=== PATIENT | female | born 1990 | race African-American/Black ===

== ENCOUNTER 2020-05-02 10:08 | Observation (INO) | payer SELFPAY ==
[2020-05-02] MEDS ORDERED: IV RINGERS,LACTATED 1000ML 1,000 ML IV SCH (10:30)
[2020-05-02 11:23] LABS: BILIRUBIN,URINE NEGATIVE (NEG); CLARITY,URINE CLEAR; COLOR,URINE YELLOW; NITRITE,URINE NEGATIVE (NEG); PH,URINE 6.5 (<5.0-8.0); PROTEIN,URINE NEGATIVE (NEG-TRACE)
[2020-05-02 11:39] LABS: RBC,URINE OCC /HPF (0-2)
[2020-05-02 11:40] LABS: BACTERIA,URINE FEW /HPF (0-FEW); WBC,URINE OCC /HPF (0-4)
--- NOTE | 2020-05-02 13:13 | RAD ---
Limited OB ultrasound greater than 14 weeks 05/02/2020 Clinical History: Second trimester . Abdominal trauma. No care. Technique: A real-time ultrasound examination of the gravid uterus was performed. Multiple images were obtained. Findings: There is a single living IUP. The fetus is in abreech position. cardiac and somatic activity is seen. The heart rate is 145 beats per minutes. The placenta is posterior. No abnormality is seen. No abnormality is seen. The amniotic fluid volume is within normal limits. Neither maternal ovary is visualized. No free fluid is seen. The following measurements were obtained: BPD 4.82cm 20 weeks 4 days HC 18.56 cm 20weeks 6 days AC 17.2 cm 22weeks 1 days FL 4.03 cm 23 weeks 0 days The estimated gestational age by ultrasound is 21 weeks 5 days plus or minus a standard deviation of 10 days. The estimated date of delivery by ultrasound is 09/07/2020. Detailed evaluation of anatomy was not performed. Impression: Single living IUP with an estimated gestational age by ultrasound of 21 weeks5 days +/- a standard deviation of 10 days. The estimated date of delivery by ultrasound is09/07/2020. Electronically signed by: Sourav Raman MD (05/02/2020 1:10 PM) [id number]
== END 2020-05-02 13:00 | disposition home or self-care (01) ==
LOC: 3 SO LND 10:08
PROVIDERS: ADMIT Obstetrics & Gynecology; ATTEND Obstetrics & Gynecology
DX: O26.892 Other specified pregnancy related conditions, second trimester (principal); R10.30 Lower abdominal pain, unspecified; O36.8120 Decreased fetal movements, second trimester, not applicable or unspecified; Z3A.21 21 weeks gestation of pregnancy; X58.XXXA Exposure to other specified factors, initial encounter; Y93.89 Activity, other specified; Y92.89 Other specified places as the place of occurrence of the external cause; Y99.8 Other external cause status
CPT/HCPCS: 76815; 81001; G0378; G0379

== ENCOUNTER 2020-05-23 16:59 | Observation (INO) | payer SELFPAY ==
[2020-05-23] MEDS ORDERED: IV RINGERS,LACTATED 1000ML 1,000 ML IV PRN (17:45)
[2020-05-23 18:39] LABS: BILIRUBIN,URINE NEGATIVE (NEG); CLARITY,URINE CLEAR; COLOR,URINE YELLOW; NITRITE,URINE NEGATIVE (NEG); PROTEIN,URINE NEGATIVE (NEG-TRACE)
[2020-05-23 18:43] LABS: BARBITURATES NEG (NEG); BENZODIAZEPINES NEG (NEG); CANNABINOIDS NEG (NEG); COCAINE NEG (NEG); METHADONE NEG (NEG); OPIATES NEG (NEG); PHENCYCLIDINE NEG (NEG)
[2020-05-23 18:44] LABS: BACTERIA,URINE MODERATE /HPF (0-FEW)
[2020-05-23 18:45] LABS: AMPHETAMINE/METHAMPHETAMINE NEG (NEG)
[2020-05-23 18:47] LABS: WBC,URINE OCC /HPF (0-4)
== END 2020-05-23 19:50 | disposition home or self-care (01) ==
LOC: 3 SO LND 16:59
PROVIDERS: ADMIT Obstetrics & Gynecology; ATTEND Obstetrics & Gynecology
DX: O62.9 Abnormality of forces of labor, unspecified (principal); Z79.899 Other long term (current) drug therapy; Z3A.24 24 weeks gestation of pregnancy
CPT/HCPCS: 80307; 81001; 87086; G0378; G0379